=== PATIENT | female | born 1990 | race Caucasian/White ===

== ENCOUNTER 2016-09-04 20:30 | Observation (INO) | payer OTHER ==
[~2016-09-04] VITALS: Ht 172.7 cm; Wt 74.8 kg
[2016-09-04 21:18] VITALS: BP 118/77
[2016-09-04] MEDS ORDERED: PREN1TAB89 PO (21:19)
[2016-09-05] MEDS ORDERED: ACET-2744 PO (22:51)
[2016-09-06] MEDS ORDERED: IBUP-1547 PO (18:01)
[2016-09-06] MEDS ORDERED: DSS100 PO (18:02)
== END 2016-09-04 22:20 | disposition home or self-care (01) ==
LOC: 4S 20:30
PROVIDERS: ADMIT Specialist; ATTEND Specialist
DX: O62.9 Abnormality of forces of labor, unspecified (principal); O48.0 Post-term pregnancy; O26.893 Other specified pregnancy related conditions, third trimester; R10.30 Lower abdominal pain, unspecified; Z3A.40 40 weeks gestation of pregnancy
CPT/HCPCS: 36415; 59025; 89060; G0378